=== PATIENT | male | born 1990 | race Hispanic/Latino ===

== ENCOUNTER 2025-05-30 10:37 | Emergency (ER) | payer OTHER ==
[~2025-05-30] VITALS: Ht 177.8 cm; Wt 124.7 kg
[2025-05-30] MEDS ORDERED: KETO10TA2 PO (13:23)
[2025-05-30] MEDS ORDERED: MUPI22OI2 TP (13:23)
[2025-05-30] MEDS ORDERED: BACL10TA PO (13:23)
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
[2025-05-30 13:30] VITALS: BP 130/88; PULSE 76; RESP 16; TEMP 98.1; O2SAT 96
--- NOTE | 2025-05-30 13:49 | HMCIMG ---
EXAM: CR right Ribs and AP Chest, 5 View. CLINICAL HISTORY: r/o fx COMPARISON: None provided. FINDINGS: LUNGS: The lungs appear essentially clear. PLEURAL SPACES: No evidence of pneumothorax. No pleural effusion. HEART: Heart size is within normal limits. MEDIASTINUM: The mediastinal silhouette is within normal limits. BONES: No acute rib fracture is evident. IMPRESSION: No evidence of acute rib fracture. No pneumothorax seen. No acute cardiopulmonary pathology is evident. /[place]
== END 2025-05-30 13:36 | disposition home or self-care (01) ==
LOC: EDH 10:37
DX: S20.211A Contusion of right front wall of thorax, initial encounter (principal); Z90.49 Acquired absence of other specified parts of digestive tract; W18.39XA Other fall on same level, initial encounter; Y93.89 Activity, other specified; Y92.89 Other specified places as the place of occurrence of the external cause; Y99.8 Other external cause status
CPT/HCPCS: 71101; 99283